=== PATIENT | female | born 2000 | race Two or more races ===

== ENCOUNTER 2025-07-30 02:03 | Emergency (ER) | payer OTHER ==
[~2025-07-30] VITALS: Ht 175.3 cm; Wt 86.2 kg
[2025-07-30 05:01] LABS: INR 1.04
[2025-07-30 05:02] LABS: BASO % 0.6 % (0.1-1.2); EOS # 0.04 (0.04-0.54); EOS % 0.5 % (0.7-7.0); LYMPH # 1.94 (1.18-3.74); LYMPH % 23.2 % (19.3-53.1); MEAN PLATELET VOLUME 10.30 fl (9.4-12.4); MONO # 0.85 (0.24-0.82); MONO % 10.2 % (4.7-12.5); NEUT # 5.47 (1.56-6.13); NEUT % 65.4 % (34.0-71.1); RED CELL DISTRIBUTION WIDTH 11.9 % (11.6-14.4)
[2025-07-30 05:21] LABS: BUN CREA RATIO 22.0 (7.0-25.0); CREATININE SERUM 0.76 mg/dL (0.55-1.02); GFR 93.5; GLUCOSE FASTING 92.0 mg/dL (65-100); OSMOLALITY SERUM 277.0 MOSM/KG (275-295)
== END 2025-07-30 06:24 ==
LOC: ER 02:04
PROVIDERS: General Practice
DX: O20.8 Other hemorrhage in early pregnancy (principal); Z3A.01 Less than 8 weeks gestation of pregnancy